=== PATIENT | male | born 2000 | race African-American/Black ===

== ENCOUNTER 2020-08-29 02:11 | Emergency (ER) | payer OTHER ==
[~2020-08-29] VITALS: Ht 195.6 cm; Wt 136.1 kg
[2020-08-29 03:55] LABS: ABSOLUTE NEUTROPHILS 6.2 thou/uL (1.4-8.2); BASOPHILS 0.9 % (0.0-2.0); EOSINOPHILS 7.3 % (0.0-3.0); HEMATOCRIT 45.9 % (42.0-52.0); HEMOGLOBIN 15.4 gm/dL (14.0-18.0); LYMPHOCYTES 17.4 % (24.0-44.0); MCH 28.6 pg (26.0-34.0); MCHC 33.6 g/dL (28.0-37.0); MCV 85.2 fL (80.0-100.0); MONOCYTES 8.1 % (1.0-8.0); PLATELET COUNT 231 thou/uL (150-400); POLYS 66.3 % (36.0-66.0); RBC 5.39 mil/uL (4.50-6.00); RDW 13.9 % (10.5-14.5); WBC 9.4 thou/uL (4.0-11.0)
[2020-08-29 04:04] LABS: ANION GAP 8 mmol/L (7-16); BUN 11 mg/dL (7-18); CALCIUM 9.4 mg/dL (8.5-10.1); CHLORIDE 103 mmol/L (98-107); CO2 27 mmol/L (21-32); CREATININE 1.3 mg/dL (0.7-1.3); GLUCOSE 89 mg/dL (74-106); POTASSIUM 3.6 mmol/L (3.5-5.1); SODIUM 138 mmol/L (136-145)
[2020-08-29 04:12] LABS: TROPONIN-I <0.06 ng/mL (<0.06)
[2020-08-29] MEDS ORDERED: PROAIR HFA8.5 GM INH (05:26)
[2020-08-29] MEDS ORDERED: ZPAK PO (05:26)
[2020-08-29 05:52] VITALS: BP 122/76
--- NOTE | 2020-08-29 07:56 | EKG ---
[facility] [place] [address] ELECTROCARDIOGRAM REPORT Name: JUAN LUIS ORR JOHNY Room #: DEP [facility]#: [id number] Admission: 08/29/20 Attend Phys: Discharge: 08/29/20 Date of : 89 Report #: [id number] THIS REPORT FOR: cc: CAPRI Gil family physician/PCP CAPRI Gil family physician/PCP Obdulio Guillen MD [facility] THIS REPORT FOR: //name// [facility] ED Test Date: 2020-08-29 Test Time: 02:46:01 Pat Name: JUA NLUIS ORR Department: Room: Gender: [employer] Supervisor: aníbal : 2000 Requested By: Porsha Bundy Order Number: [id number] MD: Obdulio Guillen Measurements Intervals [place] Rate: 87 P: 42 ME: 165 QRS: 75 QRSD: 95 T: 0 QT: 344 QTc: 414 Interpretive Statements Sinus rhythm No previous ECG available for comparison Electronically Signed On 08-29-2020 7:56:21 CDT by Obdulio Guillen [email or web address] <ELECTRONICALLY SIGNED> By: Obdulio Guillen MD, FACC 08/29/20 [id number] Obdulio Guillen MD, FACC /EPI
== END 2020-08-29 06:16 | disposition home or self-care (01) ==
LOC: ER 02:11
PROVIDERS: Emergency Medicine
DX: R07.9 Chest pain, unspecified (principal); R05 Cough; R06.00 Dyspnea, unspecified; F17.210 Nicotine dependence, cigarettes, uncomplicated